=== PATIENT | female | born 1965 | race Caucasian/White ===

== ENCOUNTER → 2020-05-29 11:58 | Outpatient (CLI) | payer OTHER, SELFPAY ==
--- NOTE | 2020-05-29 12:10 | XR_ITS ---
PROCEDURE: XR RIBS LT MIN 3V W CXR1V CLINICAL INDICATION: CLOSED FRACTURE OF MULTIPLE RIBS OF LT SIDE Follow-up rib fractures COMPARISON: No exams were available for comparison FINDINGS: There are no previous studies available at this institution. There is a small left pleural effusion with consolidation/volume loss of the left lower lobe. There is a minimally displaced fracture involving the lateral aspect of the left 10th rib and the posterior aspect of the left 11th rib. Nondisplaced fractures involve the left 8th and 9th ribs posterior laterally. No evidence of pneumothorax. IMPRESSION: Left 8th through 11th rib fractures with small left pleural effusion and left basilar consolidation/volume loss. Dictated by: Isai Mathew MD 05/29/2020 13:40 Isai Mathew MD in [place] 05/29/2020 13:40
== END ==
PROVIDERS: PCP Nurse Practitioner Family; Visit Provider Nurse Practitioner Family
DX: S22.42XD Multiple fractures of ribs, left side, subsequent encounter for fracture with routine healing (principal); J98.11 Atelectasis
CPT/HCPCS: 71101

== ENCOUNTER 2020-08-27 13:56 | Emergency (ER) | payer OTHER, SELFPAY ==
[2020-08-27 15:15] VITALS: BP 123/74; PULSE 87; RESP 14; TEMP 36.8; O2SAT 98; BMI 26.2
--- NOTE | 2020-08-27 15:34 | HMH.EDUTC ---
[facility] [place] Clinical Impression: Exposure to COVID-19 virus Disposition: Home, Self-Care Condition on Discharge: Good Instructions: DI for COVID-19 (Suspected or Confirmed ), Preventing the Spread of Coronavirus Discharge Instructions Additional Instructions: self isolate until test results are known neg Referrals: Mars Gillette MD [Primary Care Provider] - Time of Disposition: 15:38 Medical Decision Making - Sung Inquiry Pt receiving controlled substance: No [facility] [place] - General Chief complaint: Urgent Treatment Center Stated complaint: covid exposure Time Seen by Provider: 08/27/20 15:34 Mode of Arrival: Ambulatory Source of Information: Patient Limitations: No Limitations - History of Present Illness Provider Complaint: 55 yr old male presents for covid test. Pt states she has no symptoms but has had a exposer last sat. - Related Data Home Medications Medication Instructions Recorded Confirmed estradiol 0.5 mg tablet 0.5 mg PO DAILY 08/07/19 08/07/19 Previous Rx's Medication Instructions Recorded ybqybnzvaqzkplv-vugjfvdkuinktfe-BT 10 ml PO Q4-6H PRN #120 ml 08/07/19 2 mg-30 mg-10 mg/5 mL oral syrup Allergies Allergy/AdvReac Type Severity Reaction Status Date / Time No Known Allergies Allergy Unverified 08/12/17 14:19 [facility] History - Hepatitis A Screen Attestation statement:: This patient has been screened for Hepatitis A risk factors. I have reviewed the patient's past medical history: Yes Other Surgeries: Yes: Hysterectomy-Partial - Social History Smoking Status: Current every day smoker Alcohol Intake: current Alcohol Intake Frequency:: 0-2 drinks per day Occupational Status: employed ROS Obtained: Yes Systems reviewed as appropriate & no additional complaints - Constitutional Constitutional: Reports system reviewed and no additional complaints, except as docu, Denies fever(s) - Eyes Eyes: Reports system reviewed and no additional complaints, except as docu, Denies change in vision - ENT Ears, Nose, Mouth, and Throat: Reports system reviewed and no additional complaints, except as docu, Denies sore throat - Cardiovascular Cardiovascular: Reports system reviewed and no additional complaints, except as docu, Denies chest pain - Respiratory Respiratory: Yes system reviewed and no additional complaints, except as docu, No change in phlegm color - Gastrointestinal Gastrointestingal: Reports: system reviewed and no additional complaints, except as docu. Denies: nausea, vomiting - Genitourinary Female Genitourinary: Reports system reviewed and no additional complaints, except as docu - Musculoskeletal Musculoskeletal: Reports system reviewed and no additional complaints, except as docu, Denies joint pain - Integumentary/Breasts Skin/Breast: Reports system reviewed and no additional complaints, except as docu, Denies rash - Neurologic Neurologic: Reports system reviewed and no additional complaints, except as docu, Denies dizziness - Endocrine Endocrine: Reports system reviewed and no additional complaints, except as docu, Denies fatigue - Hematologic/Lymphatic Henatologic/Lymphatic: Reports system reviewed and no additional complaints, except as docu, Denies lymphadenopathy - Allergic/Immunologic Allergic/Immunologic: Reports system reviewed and no additional complaints, except as docu, Denies itchy eyes Physical Exam - General General appearance: alert, in no apparent distress - Head Head exam: atraumatic, normocephalic, normal inspection - Eye Eye exam: Present: normal appearance, PERRL - ENT ENT exam: Present: normal exam, normal oropharynx, mucous membranes moist, TM's normal bilaterally, normal external ear exam - Neck Neck exam: Present: normal inspection, full ROM, trachea midline. Absent: meningismus, lymphadenopathy - Chest Chest inspection: Present: normal inspection, symmetric chest wall rise. Absent: tenderness - Resp
[2020-08-27 15:41] VITALS: BP 123/74; PULSE 87; RESP 14; TEMP 36.8; O2SAT 98
== END 2020-08-27 15:45 | disposition home or self-care (01) ==
PROVIDERS: Emergency Provider Nurse Practitioner Family; PCP Family Medicine
DX: Z20.822 Contact with and (suspected) exposure to COVID-19 (principal); F17.210 Nicotine dependence, cigarettes, uncomplicated
CPT/HCPCS: 99202; G0463; U0003

== ENCOUNTER 2021-03-17 16:19 | Emergency (ER) | payer OTHER, SELFPAY ==
[2021-03-17 16:20] VITALS: BP 153/90; PULSE 84; RESP 21; TEMP 36.8; O2SAT 98; BMI 26.2
--- NOTE | 2021-03-17 16:39 | HMH.EDUTC ---
[facility] [place] Clinical Impression: COVID-19 virus test result unknown Disposition: Home, Self-Care Condition on Discharge: Good Instructions: COVID-19 Viral Test, COVID-19: Protecting Yourself When You're at High Risk Additional Instructions: covid swab was sent to lab, call later today for results. self isolate until test results are known to be negative Referrals: Mars Gillette MD [Primary Care Provider] - Time of Disposition: 16:45 Medical Decision Making - Sung Inquiry Pt receiving controlled substance: No Orders (Tests/Meds): ORDERS Category Date Time Status Covid-19 Nasal PCR ([facility]) Routine Lab 03/17/21 16:29 [place] [facility] [place] - General Chief complaint: Urgent Treatment Center Stated complaint: covid test Time Seen by Provider: 03/17/21 16:39 Mode of Arrival: Ambulatory Source of Information: Patient Limitations: No Limitations - History of Present Illness Provider Complaint: 56 yr old female presents for covid test, pt has no symptoms. pt states she has been traveling and wanted tested before being around anyone - Related Data Home Medications Medication Instructions Recorded Confirmed estradiol 0.5 mg tablet 0.5 mg PO DAILY 08/07/19 08/07/19 Previous Rx's Medication Instructions Recorded wxfahmqxgyiiezi-yrjggbzrqrkeefn-KO 10 ml PO Q4-6H PRN #120 ml 08/07/19 2 mg-30 mg-10 mg/5 mL oral syrup Allergies Allergy/AdvReac Type Severity Reaction Status Date / Time amoxicillin Allergy Verified 08/27/20 15:36 [facility] History - Hepatitis A Screen Attestation statement:: This patient has been screened for Hepatitis A risk factors. I have reviewed the patient's past medical history: Yes Other Surgeries: Yes: Hysterectomy-Partial - Social History Smoking Status: Current every day smoker Alcohol Intake: never Alcohol Intake Frequency:: 0-2 drinks per day Occupational Status: other ROS Obtained: Yes Systems reviewed as appropriate & no additional complaints - Constitutional Constitutional: Reports system reviewed and no additional complaints, except as docu, Denies fatigue - Eyes Eyes: Reports system reviewed and no additional complaints, except as docu, Denies blurry vision - ENT Ears, Nose, Mouth, and Throat: Reports system reviewed and no additional complaints, except as docu, Denies sinus pain - Cardiovascular Cardiovascular: Reports system reviewed and no additional complaints, except as docu, Denies chest pain - Respiratory Respiratory: Reports system reviewed and no additional complaints, except as docu, Denies shortness of breath - Gastrointestinal Gastrointestingal: Reports: system reviewed and no additional complaints, except as docu. Denies: belching - Genitourinary Female Genitourinary: Reports system reviewed and no additional complaints, except as docu, Denies pelvic pain - Musculoskeletal Musculoskeletal: Reports system reviewed and no additional complaints, except as docu, Denies joint pain - Integumentary/Breasts Skin/Breast: Reports system reviewed and no additional complaints, except as docu, Denies rash - Neurologic Neurologic: Reports system reviewed and no additional complaints, except as docu, Denies dizziness - Endocrine Endocrine: Reports system reviewed and no additional complaints, except as docu, Denies fatigue - Hematologic/Lymphatic Henatologic/Lymphatic: Reports system reviewed and no additional complaints, except as docu, Denies lymphadenopathy - Allergic/Immunologic Allergic/Immunologic: Reports system reviewed and no additional complaints, except as docu, Denies itchy eyes Physical Exam - General General appearance: alert, in no apparent distress - Head Head exam: atraumatic, normocephalic, normal inspection - Eye Eye exam: Present: normal appearance, PERRL - ENT ENT exam: Present: normal exam, normal oropharynx, mucous membranes moist, TM's normal bilaterally, normal external ear exam - Neck Neck ex
[2021-03-17 16:53] VITALS: BP 153/90; PULSE 84; RESP 21; TEMP 36.8; O2SAT 99
== END 2021-03-17 16:54 | disposition home or self-care (01) ==
PROVIDERS: Emergency Provider Nurse Practitioner Family; PCP Family Medicine
DX: Z11.52 Encounter for screening for COVID-19 (principal); F17.210 Nicotine dependence, cigarettes, uncomplicated
CPT/HCPCS: 99202; G0463; U0003

== ENCOUNTER 2021-04-14 09:30 | Emergency (ER) | payer OTHER, SELFPAY ==
[2021-04-14 09:30] VITALS: BP 179/97; PULSE 75; RESP 18; TEMP 36.6; O2SAT 98; BMI 26.7
--- NOTE | 2021-04-14 10:06 | HMH.EDUTC ---
[facility] [place] Disposition Clinical Impression: Encounter for laboratory testing for COVID-19 virus Disposition: Home, Self-Care Condition on Discharge: Good Instructions: Methylprednisolone, DI for COVID-19 (Suspected or Confirmed ), Coronavirus Disease 2019, Preventing the Spread of Coronavirus Discharge Instructions Additional Instructions: *Monitor Temp, Over the counter Motrin or Tylenol as directed/as needed Tylenol every 4 hours and Motrin every 6 hours (as long as your family doctor has told you that you can take it) for fever or pain. and straight to ER if unable to lower temp less than 101.0 after medication given *Warm salt water gargles may help to soothe the throat *Throat Lozenges *Warm fluids like tea with honey may help to soothe the throat *Sleep elevated *Humidifier/Vaporizer *Flonase 2 sprays in each nostril daily but be aware that it may take 2-3 days before you notice improvement Make sure to follow up with your Family Doctor if your blood pressure remains elevated Follow up IMMEDIATELY for new or worsening symptoms or no Noticeable improvement over the next 48-72 hours. 911 for difficulty breathing or swallowing You were tested for today for COVID19 your test result should be back in the next 24-48 hours, you may call to the [facility] to see if your test results are back in the next 48 hours [phone] [facility] hours are 9am-9pm You was given a handout with instructions for Self Quarantine and Self isolation for while you wait on test results and what to do if they are positive If you are positive the Health Dept will be contacting you also Make sure to take your Vitamins Vit. C Vit D and Zinc if you can take them Prescriptions: methylPREDNISolone [Medrol 4mg tab] 4 mg PO DIRECTED #21 tab Transmission Status: Pending to [facility] # Benzonatate [Tessalon Perle 100mg Cap*] 100 mg PO TID PRN #30 cap PRN Reason: Cough Transmission Status: Pending to [facility] # Referrals: Karen Lara MD [Primary Care Provider] - As needed Time of Disposition: 10:10 Medical Decision Making - Sung Inquiry Pt receiving controlled substance: No Sung was queried for this patient: No Vital Signs: 04/14/21 09:30 Temperature 97.9 F Temperature Source Oral Pulse Rate [Right Brachial] 75 Respiratory Rate 18 Blood Pressure [Right Arm] 179/97 H Blood Pressure Mean [Right Arm] 124 Blood Pressure Source [Right Arm] Automatic Cuff Blood Pressure Position [Right Arm] Sitting 02 Sat by Pulse Oximetry 98 Oxygen Delivery Method Room Air [facility] [place] HPI - General Stated complaint: covid symptoms/covid test Time Seen by Provider: 04/14/21 10:06 Mode of Arrival: Ambulatory Source of Information: Patient Limitations: No Limitations Description of Symptoms (Recalled from Triage Doc. by RN): PATIENT C/O SINUS DRAINAGE, PRODUCTIVE COUGH WITH YELLOW-BROWN SPUTUM SINCE LAST FRIDAY. SHE HAS BEEN ON AZITHROMYCIN SINCE FRIDAY. HEENT Symptoms (Recalled from RN notes): Yes Resp Symptoms (Recalled from RN notes): Yes Skin Symptoms (Recalled from RN notes): No MS Symptoms (Recalled from RN notes): No Functional Status (Recalled from RN notes): WNL - History of Present Illness Provider Complaint: Patient state that she has been on Azithromycin since Fri State that she has still been having cough with productive mucous at times State that she has been taking mucinex to help get it up States that she is still having some sinus pressure State that today she was still feeling bad and having body aches so she came in to get tested for COVID - Related Data Home Medications Medication Instructions Recorded Confirmed estradiol 0.5 mg tablet 0.5 mg PO DAILY 08/07/19 08/07/19 Previous Rx's Medication Instructions Recorded omvmmzmxqiadooi-cfxlmwvwmzocptx-LB 10 ml PO Q4-6H PRN #120 ml 08/07/19 2 mg-30 mg-10 mg/5 mL oral syrup Benzonatate [Tessalon Perle 100mg 100 mg PO TID PRN #30 cap 04/14/21 Cap*] methylPR
[2021-04-14 10:17] VITALS: BP 179/97; PULSE 75; RESP 18; TEMP 36.6; O2SAT 98
== END 2021-04-14 10:21 | disposition home or self-care (01) ==
PROVIDERS: Emergency Provider Nurse Practitioner; PCP Family Medicine
DX: Z20.822 Contact with and (suspected) exposure to COVID-19 (principal); R05 Cough
CPT/HCPCS: 99202; G0463; U0003

== ENCOUNTER → 2021-09-17 09:26 | Outpatient (CLI) | payer OTHER, SELFPAY | PROVIDERS: PCP Family Medicine; Visit Provider Nurse Practitioner | DX: U07.1 COVID-19 (principal) | CPT/HCPCS: C9803; U0003; U0005 ==

== ENCOUNTER 2022-07-19 10:44 | Emergency (ER) | payer OTHER, SELFPAY ==
[2022-07-19 13:25] VITALS: BP 150/73; PULSE 95; RESP 17; TEMP 36.7; O2SAT 99; BMI 26.7
--- NOTE | 2022-07-19 13:30 | EXP.UTC ---
Discharge Plan Disposition Patient Disposition: Home, Self-Care Condition: Good Prescriptions Prescriptions: New benzonatate [benzonatate] 100 mg capsule 100 mg PO TIDP PRN (Reason: Cough) Qty: 30 0RF oseltamivir [Tamiflu] 75 mg capsule 75 mg PO BID Qty: 10 0RF ondansetron 4 mg Tablet,Disintegrating 4 mg PO Q8H PRN (Reason: Nausea) Qty: 12 0RF No Action estradiol 0.5 mg tablet 0.5 mg PO DAILY rotinlwkksmibvs-qqhjmpzva-GR [Bromfed DM] 2-30-10 mg/5 mL syrup 10 ml PO Q4-6H PRN (Reason: cold symptoms) Qty: 120 0RF methylprednisolone 4 MG tablet 4 mg PO DIRECTED Qty: 21 0RF Rx Instructions: Take as directed on package instructions benzonatate 100 MG capsule 100 mg PO TID PRN (Reason: Cough) Qty: 30 0RF Referrals Follow up/Referrals: Gill Alcantara APRN [Primary Care Provider] - See instructions Activity Restrictions/Add. Instructions Additional Instructions/Restrictions: Drink plenty of fluids. Take tylenol or ibuprofen for pain or fever. Take the medications as directed. Follow up with your regular doctor. GO TO THE ER FOR ANY WORSENING SYMPTOMS Clinical Impressions Clinical Impression: Influenza A Instructions Patient Instructions: DI for Influenza -- Adult, Oseltamivir Discharge ED Provider: Ketan Figueroa [facility] General Stated complaint: exposed to flu, [place], chills Time Seen by Provider: 07/19/22 13:30 History of Present Illness Provider Complaint: She states that for the past 2 days she has had a cough, sinus congestion, fever, and scratchy sore throat. Related Data Home Medications Medication Instructions Recorded Confirmed estradiol 0.5 mg tablet 0.5 mg PO DAILY 08/07/19 08/07/19 Previous Rx's Medication Instructions Recorded ibjlqmqmzrsbzgj-ddezkhynvoreazz-YZ 10 ml PO Q4-6H PRN cold symptoms 08/07/19 2 mg-30 mg-10 mg/5 mL oral syrup #120 mL (Bromfed DM) benzonatate 100 mg capsule 100 mg PO TID PRN Cough #30 caps 04/14/21 methylprednisolone 4 mg tablet 4 mg PO DIRECTED #21 tabs 04/14/21 benzonatate 100 mg capsule 100 mg PO TIDP PRN Cough #30 caps 07/19/22 ondansetron 4 mg disintegrating 4 mg PO Q8H PRN Nausea #12 tabs 07/19/22 tablet oseltamivir 75 mg capsule (Tamiflu) 75 mg PO BID #10 caps 07/19/22 Allergies Allergy/AdvReac Type Severity Reaction Status Date / Time amoxicillin Allergy Verified 08/27/20 15:36 Penicillins Allergy Verified 04/14/21 10:05 PFSH PFSH Medical History Hypertension Surgical History History of section History of hysterectomy Social History Smoking Status: Current every day smoker alcohol intake: never current occupational status: other Travel in the last 8 weeks: None ROS Obtained: Yes All systems reviewed & no additional complaints except as documented Constitutional Constitutional: Reports chills and Reports fever(s) Eyes Eyes: Denies eye discharge ENT Ears, Nose, Mouth, and Throat: Reports as per HPI Cardiovascular Cardiovascular: Denies chest pain Respiratory Respiratory: Denies chest congestion and Reports cough Gastrointestinal Gastrointestingal: Reports nausea; Denies abdominal pain, constipation, cramping, diarrhea or vomiting Musculoskeletal Musculoskeletal: Denies arthralgias Integumentary/Breasts Skin/Breast: Denies rash Neurologic Neurologic: Denies paresthesias Physical Exam General General appearance: alert and in no apparent distress Head Head exam: atraumatic, normocephalic and normal inspection Eye Eye exam: Present normal appearance, PERRL and EOMI ENT ENT exam: Present normal exam, normal oropharynx, mucous membranes moist, TM's normal bilaterally and normal external ear exam Neck Neck exam: Present normal inspection, full ROM and trachea midline; Absent meningismus or lym
[2022-07-19 13:42] LABS: UTC Influenza A Antigen Positive (Negative); UTC Influenza B Antigen Negative (Negative)
[2022-07-19 13:43] VITALS: BP 150/73; PULSE 95; RESP 17; TEMP 36.7; O2SAT 99
== END 2022-07-19 14:07 | disposition home or self-care (01) ==
PROVIDERS: Emergency Provider Nurse Practitioner Family; PCP Nurse Practitioner Family
DX: J10.1 Influenza due to other identified influenza virus with other respiratory manifestations (principal)
CPT/HCPCS: 87804; 99212; G0463

== ENCOUNTER → 2023-05-06 23:42 | Outpatient (CLI) | payer OTHER, SELFPAY ==
[2023-05-06 18:02] LABS: Basophils % 0.4 % (0.1-2.0); Eosinophils # 0.1 K/mm3 (0.0-0.4); Eosinophils % 1.6 % (0.1-12.0); Hematocrit 42.9 % (37.0-47.0); Hemoglobin 13.7 g/dL (12.2-16.2); Lymphocytes # 2.1 K/mm3 (0.7-4.5); Lymphocytes % 50.1 % (10-50); Mean Corpuscular HGB Conc 31.8 g/dL (31.8-35.4); Mean Corpuscular Hemoglobin 30.9 pg (27.0-31.2); Mean Corpuscular Volume 97.2 fl (81-99); Mean Platelet Volume 8.8 fl (7.4-10.4); Monocytes # 0.4 K/mm3 (0.1-1.0); Monocytes % 8.4 % (1.7-9.3); Neutrophils # 1.7 K/mm3 (1.8-7.8); Neutrophils % 39.5 % (37.0-80.0); Platelet Count 265 K/mm3 (142-424); Red Blood Count 4.42 M/mm3 (4.20-5.40); Red Cell Distribution Width 13.1 % (11.5-17.5); White Blood Count 4.2 K/mm3 (4.8-10.8)
[2023-05-06 18:05] LABS: MANUAL DIFFERENTIAL MANUAL DIFFERENTIAL (MANUAL DIFF)
[2023-05-06 18:08] LABS: Alanine Aminotransferase 20 U/L (12-78); Albumin Level 4.3 g/dl (3.5-5.0); Albumin/Globulin Ratio 1.5 (1.1-1.8); Alkaline Phosphatase 61 U/L (38-126); Anion Gap 15.1 mEq/L (5-15); Aspartate Amino Transferase 31 U/L (14-36); Bilirubin,Total 0.4 mg/dl (0.2-1.3); Blood Urea Nitrogen 23 mg/dl (7-17); Calcium 9.4 mg/dl (8.4-10.2); Carbon Dioxide 28 mmol/L (22.0-30.0); Chloride 102 mmol/L (98-107); Cholesterol 217 mg/dl (140-200); Estimated Glomerular Filt Rate 64 ml/min (>60); GFR (African American) 78 ML/MIN (>60); Globulin 2.9 g/dL (1.3-3.2); Glucose 98 mg/dl (74-100); Potassium 5.1 mmoL/L (3.5-5.1); Sodium 140 mmol/L (136-145); Total Protein,Serum 7.2 g/dl (6.3-8.2); Triglycerides 110 mg/dl (30-150); VLDL Cholesterol 22 mg/dL (0-40)
[2023-05-06 18:15] LABS: Chol/HDL Ratio 2.3 (1-3.5); HDL Cholesterol 96 mg/dl (40-60)
[2023-05-06 18:19] LABS: Direct LDL Cholesterol 94.27 mg/dL (100-129)
[2023-05-06 18:25] LABS: 25-OH Vitamin D, Total 40.1 ng/mL (30-100)
[2023-05-06 18:38] LABS: Thyroid Stimulating Hormone 0.16 uIU/mL (0.465-4.68)
[2023-05-06 18:57] LABS: Vitamin B12 962 pg/mL (239-931)
[2023-05-06 20:40] LABS: Eosinophils % 3 % (0-3); Lymphocytes % 57 % (10-50); Monocytes % 4 % (2-9); Neutrophils % 36 % (42-76); Total Cells Counted 100
[2023-05-06 20:41] LABS: Platelet Estimate Normal; Stomatocytes 1+
[2023-05-08 17:54] LABS: Peripheral Smear Review Scanned Result
== END ==
PROVIDERS: PCP Physician Assistant; Visit Provider Physician Assistant
DX: Z00.00 Encounter for general adult medical examination without abnormal findings (principal); Z68.26 Body mass index [BMI] 26.0-26.9, adult
CPT/HCPCS: 80053; 80061; 82306; 82607; 84443; 85007; 85025

== ENCOUNTER → 2023-05-12 14:55 | Outpatient (CLI) | payer OTHER, SELFPAY ==
[2023-05-14 15:02] LABS: Peripheral Smear Review Scanned Result
== END ==
PROVIDERS: PCP Physician Assistant; Visit Provider Physician Assistant
DX: D72.819 Decreased white blood cell count, unspecified (principal)
CPT/HCPCS: 36415

== ENCOUNTER → 2023-06-03 06:56 | Outpatient (CLI) | payer OTHER, SELFPAY ==
[2023-06-03 18:20] LABS: Basophils % 0.4 % (0.1-2.0); Eosinophils # 0.1 K/mm3 (0.0-0.4); Hemoglobin 13.1 g/dL (12.2-16.2); Lymphocytes # 2.3 K/mm3 (0.7-4.5); Lymphocytes % 48.8 % (10-50); Mean Corpuscular HGB Conc 33.7 g/dL (31.8-35.4); Mean Corpuscular Hemoglobin 32.7 pg (27.0-31.2); Mean Corpuscular Volume 97.1 fl (81-99); Mean Platelet Volume 8.8 fl (7.4-10.4); Monocytes # 0.3 K/mm3 (0.1-1.0); Monocytes % 6.8 % (1.7-9.3); Neutrophils % 43.1 % (37.0-80.0); Platelet Count 245 K/mm3 (142-424); Red Blood Count 4.02 M/mm3 (4.20-5.40); Red Cell Distribution Width 13.4 % (11.5-17.5); White Blood Count 4.7 K/mm3 (4.8-10.8)
[2023-06-09 13:15] LABS: Lyme B. burgdorferi PCR Blood Negative (Negative)
== END ==
PROVIDERS: PCP Physician Assistant; Visit Provider Physician Assistant
DX: R89.9 Unspecified abnormal finding in specimens from other organs, systems and tissues (principal); W57.XXXA Bitten or stung by nonvenomous insect and other nonvenomous arthropods, initial encounter
CPT/HCPCS: 85025; 87476

== ENCOUNTER → 2023-07-29 13:15 | Outpatient (CLI) | payer OTHER, SELFPAY ==
--- NOTE | 2023-07-29 13:19 | XR_ITS ---
FINAL REPORT CLINICAL HISTORY: foot pain FINDINGS: 3 weightbearing views of the left foot were obtained. There is no acute fracture or dislocation. There is a small plantar calcaneal spur. The joint spaces are intact. The soft tissues are unremarkable. IMPRESSION: No acute process. Reviewed, Interpreted and Dictated by Tyson Puentes III, MD Transcribed by Anthony Tejeda Authenticated and [facility]
--- NOTE | 2023-07-29 13:19 | XR_ITS ---
FINAL REPORT CLINICAL HISTORY: foot pain FINDINGS: 3 weightbearing views of the right foot were obtained. There is no acute fracture or dislocation. There is a small plantar calcaneal spur. The joint spaces are intact. The soft tissues are unremarkable. IMPRESSION: No acute process. Reviewed, Interpreted and Dictated by Tyson Puentes III, MD Transcribed by Anthony Tejeda Authenticated and [facility]
== END ==
PROVIDERS: PCP Physician Assistant; Visit Provider Nurse Practitioner Family
DX: M79.671 Pain in right foot (principal); M79.672 Pain in left foot
CPT/HCPCS: 73630

== ENCOUNTER 2023-11-18 14:45 | Outpatient (POV) | payer OTHER, SELFPAY | END 2023-11-18 23:59 | disposition home or self-care (01) | LOC: SC 14:46 | PROVIDERS: PCP Physician Assistant; Visit Provider Dermatology | DX: Z00.00 Encounter for general adult medical examination without abnormal findings (principal) ==

== ENCOUNTER 2024-05-31 12:00 | Outpatient (CLI) | payer OTHER, SELFPAY ==
[2024-05-31 19:22] LABS: Thyroid Stimulating Hormone 1.35 uIU/mL (0.465-4.68)
== END 2024-05-31 23:59 | disposition home or self-care (01) ==
LOC: LAB.DROPOF 06-01 10:17
PROVIDERS: PCP Internal Medicine; Visit Provider Internal Medicine
DX: R79.89 Other specified abnormal findings of blood chemistry (principal)
CPT/HCPCS: 84443

== ENCOUNTER 2024-06-16 09:07 | Outpatient (CLI) | payer OTHER, SELFPAY ==
--- NOTE | 2024-06-16 09:08 | XR_ITS ---
FINAL REPORT CLINICAL HISTORY: screening FINDINGS: Using L1-4, the bone mineral density of the spine is 1.056 g/cm2, corresponding to T-score of 0.1. Using the left hip, the bone mineral density of the femoral neck is 0.801 g/cm2, corresponding to a T-score of -0.4. Using the right hip: The bone mineral density of the femoral neck is 0.829 g/cm2, corresponding to a T-score of -0.2. IMPRESSION: Normal bone mineral density of the lumbar spine and hips. NOTE: T-score: Standard deviation compared with peak bone mass of young adult mean. *Following the recommendations of the International Society of Bone densitometry, classification of hip BMD is based on the lower of two T-scores; total hip or femoral neck. Reviewed, Interpreted and Dictated by Jose Hung MD Transcribed by Mary Kennedy Authenticated and [facility]
== END 2024-06-16 23:59 | disposition home or self-care (01) ==
LOC: RAD 09:08
PROVIDERS: PCP Internal Medicine; Visit Provider Internal Medicine
DX: Z91.89 Other specified personal risk factors, not elsewhere classified (principal); Z82.62 Family history of osteoporosis
CPT/HCPCS: 77080

== ENCOUNTER 2024-09-26 09:00 | Emergency (ER) | payer OTHER, SELFPAY ==
[2024-09-26 09:25] VITALS: BP 161/97; PULSE 75; RESP 18; TEMP 36.8; O2SAT 96; BMI 26.7
--- NOTE | 2024-09-26 09:33 | EXP.UTC ---
Discharge Plan Disposition Patient Disposition: Home, Self-Care Condition: Good Prescriptions Prescriptions: No Action tirzepatide (weight loss) 10 mg/0.5 mL pen injector 10 mg SQ WEEKLY hydrocodone-homatropine 5-1.5 mg/5 mL syrup 5 ml PO Q4-6H PRN (Reason: cough) Qty: 473 0RF albuterol sulfate 90 mcg/actuation aerosol powdr breath activated 2 inh inhalation Q6H PRN (Reason: shortness of breath or wheezing) Qty: 1 3RF Alvesco 80 mcg/actuation HFA aerosol inhaler 1 puff inhalation BID Qty: 6.1 3RF estradiol 1 mg tablet 1 mg PO DAILY Patient Comments: TAKE 1 TABLET BY MOUTH EVERY DAY losartan 50 mg tablet See Rx Instructions .ROUTE .COMPLEX Qty: 90 0RF Dose Instruction: TAKE 1 TABLET BY MOUTH DAILY Rx Instructions: TAKE 1 TABLET BY MOUTH DAILY Referrals Follow up/Referrals: Lisandro Gale DO [Primary Care Provider] - See instructions Activity Restrictions/Add. Instructions Additional Instructions/Restrictions: Make sure to call OBGYN in the morning as you was instructed and follow up as soon as possible Straight to ER if any life threatening symptoms Return if needed Take it easy no heavy lifting or exercise until seen by OBGYN Clinical Impressions Clinical Impression: Vaginal bleeding problems Print Language Print Language: Bulgarian Discharge ED Provider: Joyce Jason [facility] [place] General Stated complaint: uti Time Seen by Provider: 09/26/24 09:33 History of Present Illness Provider Complaint: Patient states that she had a hysterectomy back several years ago and had female exam done last week and then she started spotting and yesterday had some vaginal bleeding States that she called the OBGYN and they wanted her to get tested to see if she may have a UTI and if not follow up in the office with them for further evaluation States that she has been having some urinary frequency on and off states that she hasnt had any burning with urination or anything but has had a little headache on and off Related Data Home Medications ?Medication ?Instructions ?Recorded ?Confirmed estradiol 1 mg tablet 1 mg PO DAILY 05/06/23 06/21/24 tirzepatide (weight loss) 10 10 mg SQ WEEKLY 05/17/24 06/21/24 mg/0.5 mL subcutaneous pen injector Previous Rx's ?Medication ?Instructions ?Recorded albuterol sulfate 90 mcg/actuation 2 inh inhalation Q6H PRN shortness 06/21/24 breath activated powder inhaler of breath or wheezing #1 ea ciclesonide 80 mcg/actuation 1 puff inhalation BID #6.1 grams 06/21/24 aerosol inhaler (Alvesco) hydrocodone-homatropine 5 mg-1.5 5 ml PO Q4-6H PRN cough #473 mL 06/21/24 mg/5 mL oral syrup losartan 50 mg tablet See Rx Instructions .Route 08/13/24 .COMPLEX #90 tabs Allergies Allergy/AdvReac Type Severity Reaction Status Date / Time amoxicillin Allergy Verified 06/21/24 14:38 Penicillins Allergy Verified 06/21/24 14:38 [facility]: The information contained in this section may have been updated after the patient was seen, as this information can be updated by other users. Medical History Hypertension Surgical History History of hysterectomy History of section Family History Other No significant family history Social History Smoking Status: Current every day smoker alcohol intake: never current occupational status: other Travel in the last 8 weeks: None Have you lived/traveled outside US in past 30 days?: No Contact w/someone who lives/traveled outside US past 30 days?: No Exposure to someone with infectious disease in past 14 days?: No Do you have a fever (greater than 100.4 F or 38 C)?: No Have you tested positive for COVID-19: No Exposed to someone with COVID-19 in past 14 days?: No Do you have a sore throat?: No Do you have a cough?: No Do you have any weakness?: No Do you have any diarrhea?: No Are you experiencing any unusual bleeding?: No Do you have any muscle aches/pain?: No Do you have any abdominal pain?: No Are you experiencing loss of taste or smell?: Yes ROS Obtained: Yes All systems reviewed & no additional complaints except as documented and Yes Systems reviewed as appropriate & no additional complaints except as documented Constitutional Constitutional: Reports system reviewed and no additional complaints, except as documented, Reports as per HPI, Denies body ache, Denies chills, Denies fever(s) and Reports headache(s) (on and off x 2 weeks) ENT Ears, Nose, Mouth, and Throat: Reports system reviewed and no additional complaints, except as documented, Reports as per HPI and Reports headache(s) (on and off x 2 weeks) Cardiovascular Cardiovascular: Reports system reviewed and no additional complaints, except as documented and Reports as per HPI Respiratory Respiratory: Reports system reviewed and no additional complaints, except as documented and Reports as per HPI Gastrointestinal Gastrointestingal: Reports system reviewed and no additional complaints, except as documented and as per HPI Genitourinary Female Genitourinary: Reports system reviewed and no additional complaints, except as documented, Reports as per HPI, Reports abnormal vaginal bleeding, Reports urinary frequency and Reports urinary urgency Musculoskeletal Musculoskeletal: Reports system reviewed and no additional complaints, except as documented and Reports as per HPI Neurologic Neurologic: Reports headache(s) (on and off x 2 weeks) Physical Exam General General appearance: alert and in no apparent distress ENT ENT exam: Present normal exam, normal oropharynx, mucous membranes moist and TM's normal bilaterally Respiratory Respiratory exam: Present normal lung sounds bilaterally; Absent respiratory distress or wheezes Cardiovascular Cardiovascular exam: Present regular rate, normal rhythm and normal heart sounds Abdominal Exam Abdominal exam: Present soft and normal bowel sounds; Absent distention or tenderness Neurological Exam Neurological exam: Present alert, oriented X3 and normal gait Medical Decision Making Medical Records Screening: Per USPSTF and CDC recommendations, given the prevalence of disease in our region, it is our hospital?s policy to screen for HIV and viral Hepatitis for all patients aged 18 and over and those with ongoing risk factors. Sung Inquiry Pt receiving controlled substance: No Sung was queried for this patient: No Lab Data Lab results reviewed: Yes I reviewed the patient's lab results. Medical Decision Narrative: Patient informed of results of UA dip and will send urine for culture patient states that she is not having any vaginal bleeding today and will call OBGYN first thing in the morning for further evaluation and examination Patient given strict return instructions to the ED
[2024-09-26 09:35] LABS: Apearance,Urine Clear (Clear); Bilirubin,Urine Negative (Negative); Blood, Urine Negative (Negative); Color,Urine Yellow (Yellow); Glucose,Urine (UA) Negative (Negative); Ketones,Urine Negative (Negative); Protein,Urine Negative (Negative); UTC Leukocyte Esterase,Urine Negative (Negative); UTC Nitrate,Urine Negative (Negative); Urobilinogen,Urine 0.2 EU/dl (0.2)
[2024-09-26 09:53] VITALS: BP 161/97; PULSE 75; RESP 18; TEMP 36.8; O2SAT 96
== END 2024-09-26 09:55 | disposition home or self-care (01) ==
PROVIDERS: Emergency Provider Nurse Practitioner; PCP Internal Medicine
DX: N93.9 Abnormal uterine and vaginal bleeding, unspecified (principal)
CPT/HCPCS: 81003; 87086; 99213; G0381

== ENCOUNTER 2025-02-03 11:58 | Outpatient (CLI) | payer OTHER, SELFPAY ==
--- OUTSIDE RECORDS SUMMARY | 2024-12-14 05:15 | XMS_ITS ---
Author Organization [facility] Address [address] [place] [address] Care Team Providers Care Carroter Name Role Phone Eliane Soliz Unavailable [phone] Fartun Chaudhary Unavailable [phone] Allergies Allergen (clinical drug ingredient) Drug/Non Drug Allergy documented on EMR Reaction Allergy Type Onset Date Status PENICILLIN V POTASSI UM (PENICILLIN V POTASSIUM TAB rash Drug Allergy 12/23/2013 Active REASON FOR VISIT Pre Op Medications Medication SIG (Take, Route, Frequency, Duration) Notes Start Date End Date Status Testosterone Active Turmeric Active Losartan Potassium 1.25mg sr cap Active Acetaminophen Extra Strength 500 MG Tablet 2 tablet po every 6 hours; Duration: 14 days Take on schedule for 14 days to prevent post operative pain, then as needed. Active Meloxicam 15 MG Tablet 1 tablet po daily; Duration: 14 days Take daily for 14 days to prevent post-operative pain. Active Ondansetron HCl 4 MG Tablet 1 tablet po every 8 hours; Duration: 3 days As needed for post operative nausea Active oxyCODONE HCl 5 MG Tablet 1 tablet po every 6 hours; Duration: 3 days Take as needed for severe post operative pain. 12/14/2024 Active Polyethylene Glycol 3350 17 GM/SCOOP Powder 1 scoop po daily; Duration: 14 days Use daily for 14 days to prevent post operative constipation. May hold for loose stool. May double dose for severe constipation. Active Estradiol 1 MG Tablet 1 tablet Orally On ce a day; Duration: 90 days Active Apple Cider Vinegar Active Social History Tobacco Use: Social History Observation Description Date Details (start date - stop date) Former Smoker NA - NA Sex Assigned At : Social History Observation Description Sex Assigned At Female Social History Drugs/Alcohol: Social Info Question Answer Notes Drugs Have you used drugs other than those for medical reasons in the past 12 months? No Alcohol Screen Did you have a drink containing alcohol in the past year? No Points 0 Interpretation Negative Tobacco Use: Social Info Question Answer Notes Tobacco Use/Smoking Are you a former smoker Vital Signs Blood pressure systolic 126 mm Hg 12/15/19 25 Blood pressure diastolic 86 mm Hg 025 Height 61 in 12/14/2024 Weight 139.8 lbs 12/14/2024 BMI 26.41 kg/m2 12/14/2024 Encounters Encounter Location Date Provider Diagnosis [facility] [address] [facility] [address] [place] [address] 12/14/2024 Fartun Chaudhary Pelvic mass R19.00 ; Vaginal bleeding N93.9 and Pre-op evaluation Z01.818 Assessments Encounter Date Diagnosis (ICD Code) Assessment Notes Treatment Notes Treatment Clinical Notes Section Notes 12/14/2024 Pelvic mass (ICD-10 - R19.00) 12/14/2024 Vaginal bleeding (ICD-10 - N93.9) 12/14/2024 Pre-op evaluation (ICD-10 - Z01.818) Patient's diagnosis and treatment options were again reviewed, including lesser invasive options. The risks, benefits, and likely outcomes of each were reviewed. The patient confirms her desire to proceed with robotic bilateral oophorectomy and excision of vaginal wall mass. Recognized risks of this procedure are those of any laparoscopic surgical procedure including anesthesia, bleeding, infection, damage to bowel or bladder and neurologic damage. Specific risks of this procedure were also reviewed including ureteral damage, DVT and its sequelae, vaginal cuff hematoma or infection, wound dehiscence as well as the general management of these complications. She was informed of the possible need to convert the laparoscopic procedure to an open procedure after the induction of anesthesia. She was also advised that bleeding, bowel injury, bladder injury or ureteral injury may not be obvious at the time of surgery and that she would need to be vigilant to call my office ERIC with any increasing abdominopelvic pain or any fever in the two weeks following surgery. All the patient's questions were answered, and she was advised to call with any other questions that she may have prior to the operation. Postoperative restrictions and recommended activity level is discussed. Postoperative medications will be sent to her pharmacy on file. She is provided with written instructions regarding post operative medications, wound care and activity. Plan Of Treatment Medication Medication Name Sig Start Date Stop Date Notes Acetaminophen Extra Strength 500 MG Tablet 2 tablet po every 6 hours; Duration: 14 days Meloxicam 15 MG Tablet 1 tablet po daily ; Duration: 14 days Ondansetron HCl 4 MG Tablet 1 tablet po every 8 hours; Duration: 3 days oxyCODONE HCl 5 MG Tablet 1 tablet po ev theo 6 hours; Duration: 3 days 12/14/2024 Polyethylene Glycol 3350 17 GM/SCOOP Powder 1 scoop po daily; Duration: 14 days Treatment Notes Assessment Notes Pre-op evaluation Patient's diagnosis and treatment options were again reviewed, including lesser invasive options. The risks, benefits, and likely outcomes of each were reviewed. The patient confirms her desire to proceed with robotic bilateral oophorectomy and excision of vaginal wall mass. Recognized risks of this procedure are those of any laparoscopic surgical procedure including anesthesia, bleeding, infection, damage to bowel or bladder and neurologic damage. Specific risks of this procedure were also reviewed including ureteral damage, DVT and its sequelae, vaginal cuff hematoma or infection, wound dehiscence as well as the general management of these complications. She was informed of the possible need to convert the laparoscopic procedure to an open procedure after the induction of anesthesia. She was also advised that bleeding, bowel injury, bladder injury or ureteral injury may not be obvious at the time of surgery and that she would need to be vigilant to call my office ERIC with any increasing abdominopelvic pain or any fever in the two weeks following surgery. All the patient's questions were answered, and she was advised to call with any other questions that she may have prior to the operation. Postoperative restrictions and recommended activity level is discussed. Postoperative medications will be sent to her pharmacy on file. She is provided with written instructions regarding post operative medications, wound care and activity. Next Appt Details Provider Name:Eliane Soliz, 09/16/2025 11:15:00 AM, [address] [place] [address], [id number], History and Physical Notes * HPI (History of Present Illness) Category Sub-Category Detail Notes Category Not es RN NEONATAL Floridalma Conrad is a 59-year-old female who reports experiencing vaginal bleeding since September 15. Initially, she thought it was a minor scratch, but the bleeding persisted. She underwent treatment with silver nitrate, which temporarily stopped the bleeding for two to three days, but it resumed and lasted about a week the second time. The bleeding has worsened, and she now uses four to five panty liners a day, compared to a couple a day previously. She notes that the bleeding is more pronounced when she goes to the bathroom. Floridalma also mentions a family history of ovarian cancer, as her mother from the disease. She had a hysterectomy before her mother's diagnosis and has since undergone ovarian screening. Since her last visit, her bx has come back consistent with endometrial tissue. She has been scheduled for robotic bilateral oophorectomy with excision of vaginal apex mass. Examination Category Sub-Category Detail Notes Category Not es General Examination GENERAL: Well develop ed/well nourished, no acute distress, oriented to time, place, and person CARDIOPULMONARY: Respiratory effort e clark and unlabored PSYCHIATRIC: Mood pleasant Progress Notes * Floridalma CONRAD LDOB:1965 (59 yo F)Acc No.[id number]:12/14/2024 Progress Note Patient: Floridalma SMYTH Provider: Anastasiya Chaudhary MD :1965 A ge:59 Y S ex:Female Date:12/14/2024 Address:[address] [place], [place] [id number] Subjective: * Chief Complaints: * P re Op * HPI: G YN: Floridalma Conrad is a 59-year-old female who reports experiencing vaginal bleeding since September 15. Initially, she thought it was a minor scratch, but the bleeding persisted. She underwent treatment with silver nitrate, which temporarily stopped the bleeding for two to three days, but it resumed and lasted about a week the second time. The bleeding has worsened, and she now uses four to five panty liners a day, compared to a couple a day previously. She notes that the bleeding is more pronounced when she goes to the bathroom. Floridalma also mentions a family history of ovarian cancer, as her mother from the disease. She had a hysterectomy before her mother's diagnosis and has since undergone ovarian screening. Since her last visit, her bx has come back consistent with endometrial tissue. She has been scheduled for robotic bilateral oophorectomy with excision of vaginal apex mass. G eneral Health Maintenance: Patient presents for hysterectomy counseling. * Medical History: Abnormal pap Seasonal allergies Hypertension * Information Technology Director History: P ap Smear History: L ast Pap/HPV Results: N ormal Pap M ammogram History: D ate of last mammogram: 0 * OB History: G P : 2 Para: 2 * Surgical History: x 2 cryo surgery 1994 LAV - 2006 tubal D&C * Hospitalization/Major Diagno stic Procedure: childbirth [facility] * Family History: Father lung cancer , HTN-MGM, father and PGM , mother- ovarian cancer , PGM-diabetes. * Social History: T obacco Use: T obacco Use/Smoking A re you a f ormer smoker D rugs/Alcohol: D rugs H ave you used drugs other than those for medical reasons in the past 12 months? N o Alcohol Screen D id you have a drink containing alcohol in the past year? N o P oints 0 I nterpretation N egative * Medications: T akingApple Cider Vinegar Estradiol 1 MG Tablet 1 tablet Orally Once a day Losartan Potassium , Notes to Pharmacist: 1.25mg sr capTestosterone Turmeric Medication List reviewed and reconciled with the patientTaking Apple Cider Vinegar Taking Estradiol 1 MG Tablet 1 tablet Orally Once a day Taking Losartan Potassium , Notes to Pharmacist: 1.25mg sr capTaking Testosterone Taking Turmeric Medication List reviewed and reconciled with the patient * Allergies: P ENICILLIN V POTASSIUM (PENICILLIN V POTASSIUM TAB: rash - Allergy - Onset Date [id number][Allergies Verified] Objective: * Vitals: B P:126/86mm Hg, Ht: 61 in, Wt:139.8lbs, BMI:26.41Index. * P ast Orders: L ab:CBC WITH AUTO DIFFERENTIAL (Order Date - 12/14/2024) (Collection Date & Time - 12/14/2024 11:59 AM) Result: Normal Value Reference Range WBC, CORRECTED 4.11 3.40-10.80 - 10*3/mm 3 ERYTHROCYTES IN BLOOD BY AUTOMATED COUNT 4.22 3.77-5.28 - 10*6/mm3 HEMOGLOBIN (MG/DL) IN BLOOD 13.0 12.0-15.9 - g/dL HEMATOCRIT (%) BY AUTOMATED COUNT 39.9 34.0-46.6 - % RBC MCV (FL) BY AUTOMATED COUNT 94.5 79.0-97.0 - fL RBC MCH (PG) BY AUTOMATED COUNT 30.8 26.6-33.0 - pg RBC MCHC (G/DL) BY AUTOMATED COUNT 32.6 31.5-35.7 - g/dL RBC RDW (%) BY AUTOMATED COUNT 13.4 12.3-15.4 - % RDW-SD 46.3 37.0-54.0 - fl MEAN PLATELET VOLUME (FL) BY AUTOMATED COUNT 9.1 6.0-12.0 - fL PLATELETS BY AUTOMATED COUNT 225 140-450 - 10*3/mm3 NEUTROPHILS RELATIVE PERCENT BY AUTOMATED COUNT 41.7 L 42.7-76.0 - % LYMPHOCYTES RELATIVE PERCENT BY AUTOMATED COUNT 45.7 H 19.6-45.3 - % MONOCYTES RELATIVE PERCENT BY AUTOMATED COUNT 10.2 5.0-12.0 - % EOSINOPHILS RELATIVE PERCENT BY AUTOMATED COUNT 1.7 0.3-6.2 - % BASOPHILS RELATIVE PERCENT BY AUTOMATED COUNT 0.5 0.0-1.5 - % IMMATURE GRANULOCYTES RELATIVE PERCENT 0.2 0.0-0.5 - % NEUTROPHILS ABSOLUTE COUNT BY AUTOMATED COUNT 1.71 1.70-7.00 - 10*3/mm3 LYMPHOCYTES ABSOLUTE COUNT BY AUTOMATED COUNT 1.88 0.70-3.10 - 10*3/mm3 MONOCYTES ABSOLUTE COUNT BY AUTOMATED COUNT 0.42 0.10-0.90 - 10*3/mm3 EOSINOPHILS ABSOLUTE COUNT BY AUTOMATED COUNT 0.07 0.00-0.40 - 10*3/mm3 BASOPHILS ABSOLUTE COUNT BY AUTOMATED COUNT 0.02 0.00-0.20 - 10*3/mm3 IMMATURE GRANULOCYTES ABSOLUTE COUNT 0.01 0.00-0.05 - 10*3/mm3 NRBC (PER 100 WBCS) 0.0 0.0-0.2 - /100 WBC L ab:URINALYSIS W/ CULTURE IF INDICATED (Order Date - 12/14/2024) (Collection Date & Time - 12/14/2024 11:59 AM) Result: Negative Value Reference Range COLOR OF URINE Yellow Yellow, St - CLARITY OF URINE Clear Clear - PH OF URINE BY AUTOMATED TEST STRIP 6.5 5.0-8.0 - SPECIFIC GRAVITY OF URINE BY AUTOMATED TEST STRIP 1.009 1.001-1.03 - GLUCOSE IN URINE BY AUTOMATED TEST STRIP Negative Negative - KETONES IN URINE BY AUTOMATED TEST STRIP Negative Negative - BILIRUBIN, TOTAL IN URINE BY AUTOMATED TEST STRIP Negative Negative - HEMOGLOBIN IN URINE BY AUTOMATED TEST STRIP Moderate (2+) A Negative - PROTEIN IN URINE BY AUTOMATED TEST STRIP Negative Negative - LEUKOCYTE ESTERASE IN URINE BY AUTOMATED TEST STRIP Negative Negative - NITRITE IN URINE BY AUTOMATED TEST STRIP Negative Negative - UROBILINOGEN IN URINE BY AUTOMATED TEST STRIP 0.2 E.U./dL 0.2 - 1.0 - L ab:URINALYSIS, MICROSCOPIC ONLY (Order Date - 12/14/2024) (Collection Date & Time - 12/14/2024 11:59 AM) Result: Negative Value Reference Range RBC, UA 0-2 None Seen, - /HPF WBC, UA 0-2 None Seen, - /HPF BACTERIA, UA None Seen None Seen, - /HPF SQUAMOUS EPITHELIAL CELLS, UA 0-2 None Seen, - /HPF HYALINE CASTS, UA None Seen 0-6 - /LPF METHODOLOGY Automated Microscopy - L ab:POTASSIUM (Order Date - 12/14/2024) (Collection Date & Time - 12/14/2024 12:13 PM) Result: Normal Value Reference Range POTASSIUM MMOL/L IN SER/PLAS 4.7 3.5-5.2 - mmol/L L ab:Tissue Pathology (Order Date - 11/15/2024) (Collection Date & Time - 11/15/2024 02:16 PM) Value Reference Range AP results - Notes: Eliane Soliz 11/17/2024 05:49:34 PM EDT > Patient notified of benign path and will notify Dr. Chaudhary of results. I maging:*US Pelvis Complete Transabdominal/Vaginal (Non-OB) (Order Date - 11/16/2024) (Performed Date - 11/16/2024) * Examination: G eneral Examination: GENERAL: W ell developed/well nourished, no acute distress, oriented to time, place, and person. CARDIOPULMONARY: R espiratory effort even and unlabored.? PSYCHIATRIC: M ood pleasant. Assessment: * Assessment: 1. P elvic mass - R19.00 (Primary) 2 . V aginal bleeding - N93.9 3 . P re-op evaluation - Z01.818 Plan: * Treatment: * Procedure Codes: * Billing Information: * Visit Code: 48841 Office/Outpatient visit, est patient. * Procedure Codes: * Sign off status: Completed Visit Status: C HK (Check Out) true * Provider: Anastasiya Chaudhary MD Date: 0 12/14/2024 Generated for Alyse german/Jailyn/Sharmilaitting on: 0 02/03/2025 01:29 PM EDT
--- OUTSIDE RECORDS SUMMARY | 2024-12-23 05:00 | XMS_ITS ---
Author Organization [facility] Address [address] [facility] [address] [place] [address] Care Team Providers Care Pulpwood Contractor Name Role Phone Eliane Soliz Unavailable [phone] Fartun Chaudhary Unavailable [phone] REASON FOR VISIT AUGUSTINE EXC OF VAG CUFF MASS, ANDREY SO Social History Sex Assigned At : Social History Observation Description Sex Assigned At Female Encounters Encounter Location Date Provider Diagnosis [facility] [address] [place] [address] 12/23/2024 Fartun Chaudhary Plan Of Treatment Next Appt Details Provider Name:Eliane Soliz, 09/16/2025 11:15:00 AM, [address] [facility], [place], [address], Progress Notes * Floridalma CONRAD LDOB:1965 (59 yo F)Acc No.[id number]:12/23/2024 Patient: Floridalma Nguyễn Elijah Provider: Anastasiya Chaudhary MD :1965 A ge:59 Y S ex:Female Date:12/23/2024 Address:[place] [id number] Subjective: * Chief Complaints: * R OB EXC OF VAG CUFF MASS, ANDREY SO Billing Information: * Procedure Codes: * Electronic signature of Hazel Chaudhary MD on 02/03/2025 at 01:28 PM EDT Sign off status: Pending Visit Status: Shanta ARRIAGA (Check Out) * Provider: Anastasiya Chaudhary MD Date: 0 12/23/2024 Generated for Alyse german/Jailyn/Daniel on: 0 02/03/2025 01:28 PM EDT
--- OUTSIDE RECORDS SUMMARY | 2025-01-11 09:30 | XMS_ITS ---
Author Organization [facility] Address [address] [place] [address] Care Team Providers Care Top Knitter Name Role Phone Eliane Soliz Unavailable [phone] Fartun Chaudhary Unavailable [phone] Allergies Allergen (clinical drug ingredient) Drug/Non Drug Allergy documented on EMR Reaction Allergy Type Onset Date Status PENICILLIN V POTASSI UM (PENICILLIN V POTASSIUM TAB rash Drug Allergy 12/23/2013 Active REASON FOR VISIT 4 wk post op Medications Medication SIG (Take, Route, Frequency, Duration) Notes Start Date End Date Status Turmeric Active Apple Cider Vinegar Active Losartan Potassium 1.25mg sr cap Active Acetaminophen Extra Strength 500 MG Tablet 2 tablet po every 6 hours; Duration: 14 days Take on schedule for 14 days to prevent post operative pain, then as needed. Active Magnesium Active Social History Tobacco Use: Social History [...] former smoker Vital Signs Blood pressure systolic 120 mm Hg 01/12/20 25 Blood pressure diastolic 76 mm Hg 025 Height 61 in 01/11/2025 Weight 139.2 lbs 01/11/2025 BMI 26.3 kg/m2 01/11/2025 Encounters Encounter Location Date Provider Diagnosis [id number] [address] [address] [place] [address] 01/11/2025 Fartun Chaudhary Postoperative visit Z48.89 Assessments Encounter Date Diagnosis (ICD Code) Assessment Notes Treatment Notes Treatment Clinical Notes Section Notes 01/11/2025 Postoperative visit (ICD-10 - Z48.89) Normal post op. Precautions reviewed. Plan Of Treatment Next Appt Details Provider Name:Eliane Soliz, 09/16/2025 11:15:00 AM, [address] [facility], [address], [place], [address], History and Physical Notes * HPI (History of Present Illness) Category Sub-Category Detail Notes Category Not es Post Operative Visit Pathology Results Benign ovaries, endometriosis Date of Operation BSO, excision of vag inal wall mass, ureterolysis (Dr. De La Rosa) 12/23/24 Post Operative Complication Complications Reported Complications: : Patient is doing well. She denies significant pain or bleeding and reports normal voiding function. Examination Category Sub-Category Detail Notes Category Not es Genitourinary Examination - Female VAGINA: Normal appearance for age, n o significant discharge, lesions, or masses present CERVIX: Appearance normal, n o lesions present, no significant discharge, no tenderness to cervical motion UTERUS: Size normal, no palp able masses, mobile, nontender to palpation BLADDER: Normal and nontender to palpation ADNEXA: No masses or tendern ess bilaterally EXTERNAL GENITALIA: Normal appearance fo r age, no erythema or skin lesions present URETHRA/URETHRAL MEATUS: Normal in appea peter, nontender without mass effect PERINEUM: Normal in appearance without lesion General Examination GENERAL APPEARANCE: Well dev eloped, well nourished, alert in no acute distress NEURO/PSYCH: Oriented to person, place, and time. Mood pleasant, normal affect CARDIOPULMONARY: Respiratory effort i s even and unlabored ABDOMINAL/GASTROINTESTINAL: Abdomen nont nancy, no masses palpated Incision Check Incision(s) Clean dry intact , vaginal cuff intact without evidence of infection or hematoma Director Of Recreation Therapy Director Of Recreation Therapy Status BEULAH PATRICIO Progress Notes * Floridalma CONRAD LDOB:1965 (59 yo F)Acc No.[id number]:01/11/2025 Progress Note Patient: Floridalma SMYTH Provider: Anastasiya Chaudhary MD :1965 A ge:59 Y S ex:Female Date:01/11/2025 Address:[place], [id number] Subjective: * Chief Complaints: * 4 wk post op * HPI: P ost Operative Visit: Date of Operation B SO, excision of vaginal wall mass, ureterolysis (Dr. De La Rosa) 12/23/24. Pathology Results B enign ovaries, endometriosis. P ost Operative Complication: Complications R eported Complications : Patient is doing well. She denies significant pain or bleeding and reports normal voiding function. * Medical History: Abnormal pap Seasonal allergies Hypertension * Client Business Manager History: P ap Smear History: L ast Pap/HPV Results: N ormal Pap M ammogram History: D ate of last mammogram: * OB History: G P : 2 Para: 2 * Surgical History: x 2 cryo surgery 1994 [facility] - 2006 tubal D&C BSO, excision of vaginal wall mass, left uterolysis 12/23/24 * Hospitalization/Major Diagno stic Procedure: childbirth [facility] * Family History: Father lung cancer , [...] I nterpretation N egative * Medications: T akingAcetaminophen Extra Strength 500 MG Tablet 2 tablet po every 6 hours Take on schedule for 14 days to prevent post operative pain, then as needed.Apple Cider Vinegar Losartan Potassium , Notes to Pharmacist: 1.25mg sr capMagnesium Turmeric Taking Acetaminophen Extra Strength 500 MG Tablet 2 tablet po every 6 hours Take on schedule for 14 days to prevent post operative pain, then as needed.Taking Apple Cider Vinegar Taking Losartan Potassium , Notes to Pharmacist: 1.25mg sr capTaking Magnesium Taking Turmeric DiscontinuedEstradiol 1 MG Tablet 1 tablet Orally Once a day Meloxicam 15 MG Tablet 1 tablet po daily Take daily for 14 days to prevent post-operative pain.Ondansetron HCl 4 MG Tablet 1 tablet po every 8 hours As needed for post operative nauseaoxyCODONE HCl 5 MG Tablet 1 tablet po every 6 hours Take as needed for severe post operative pain.Polyethylene Glycol 3350 17 GM/SCOOP Powder 1 scoop po daily Use daily for 14 days to prevent post operative constipation. May hold for loose stool. May double dose for severe constipation.Testosterone Medication List reviewed and reconciled with the patientDiscontinued Estradiol 1 MG Tablet 1 tablet Orally Once a day Discontinued Meloxicam 15 MG Tablet 1 tablet po daily Take daily for 14 days to prevent post-operative pain.Discontinued Ondansetron HCl 4 MG Tablet 1 tablet po every 8 hours As needed for post operative nauseaDiscontinued oxyCODONE HCl 5 MG Tablet 1 tablet po every 6 hours Take as needed for severe post operative pain.Discontinued Polyethylene Glycol 3350 17 GM/SCOOP Powder 1 scoop po daily Use daily for 14 days to prevent post operative constipation. May hold for loose stool. May double dose for severe constipation.Discontinued Testosterone Medication List reviewed and reconciled with the patient * Allergies: P ENICILLIN V POTASSIUM (PENICILLIN V POTASSIUM TAB: rash - Allergy - Onset Date [id number][Allergies Verified] Objective: * Vitals: B P:120/76mm Hg, Ht: 61 in, Wt:139.2lbs, BMI:26.3Index. * Examination: G eneral Examination: GENERAL APPEARANCE: W ell developed, well nourished, alert in no acute distress. NEURO/PSYCH: O riented to person, place, and time. Mood pleasant, normal affect. CARDIOPULMONARY: R espiratory effort is even and unlabored.? ABDOMINAL/GASTROINTESTINAL: A bdomen nontender, no masses palpated. I ncision Check: Incision(s) C lean dry intact, vaginal cuff intact without evidence of infection or hematoma. G enitourinary Examination - Female: EXTERNAL GENITALIA: N ormal appearance for age, no erythema or skin lesions present. URETHRA/URETHRAL MEATUS: N ormal in appearance, nontender without mass effect. BLADDER: N ormal and nontender to palpation. VAGINA: N ormal appearance for age, no significant discharge, lesions, or masses present. CERVIX: A ppearance normal, no lesions present, no significant discharge, no tenderness to cervical motion. UTERUS: S ize normal, no palpable masses, mobile, nontender to palpation. ADNEXA: N o masses or tenderness bilaterally. PERINEUM: N ormal in appearance without lesion. ? C haperone: Director Of Recreation Therapy Status Zak PARRA LPN . Assessment: * Assessment: 1. P ostoperative visit - Z48.89 (Primary) Plan: * Treatment: * Procedure Codes: 9 9024 POSTOP FOLLOW-UP VISIT * Preventive Medicine: Post Operative: I nstructions D iscussed her post-op course to date, as well as the expected progress going forward, including returning to work, exercise and sexual activity. All questions answered. Patient voices an understanding of instructions and will resume routine gynecologic care. The patient will call or return to the office for questions or problems.. * Billing Information: * Visit Code: 61630 Office/Outpatient visit, est patient. * Procedure Codes: 11356 POSTOP FOLLOW-UP VISIT. * Sign off status: Completed Visit Status: C HK (Check Out) true * Provider: Anastasiya Chaudhary MD Date: 0 01/11/2025 Generated for Alyse german/Jailyn/Sharmilaitting on: 0 02/03/2025 01:29 PM EDT
[2025-02-03 13:13] LABS: 25-OH Vitamin D, Total 50.9 ng/mL (30-100)
[2025-02-03 13:27] LABS: Thyroid Stimulating Hormone 1.06 uIU/mL (0.465-4.68)
--- OUTSIDE RECORDS SUMMARY | 2025-02-03 13:30 | XMS_ITS | Clinical Summary ---
Author Organization Healthcare Address [address] [place] [address] Care Team Providers Care Metal Bonder Name Role Phone Lisandro Gale DO Primary Care Provider [phone] Social History Tobacco Use Types Packs/Day Years Used Date Smoking Tobacco: Never Assessed Comments Unknown Sex and Gender Information Value Date Recorded Sex Assigned at Not on file Legal Sex Female 6:38 PM EDT Gender Identity Not on file Sexual Orientation Not on file Plan of Treatment Upcoming Encounters Date Type Department Care Team (Late st Contact Info) Description 09/30/2025 10:30 AM EST Ovarian Cancer Screening [facility] Gynecology [address] [place] [address] Health Maintenance Due Date Last Done Comments [facility]-Depression Screening 1965 [facility]-HIV Screening 1965 [facility]-Hepatitis C Screening 1965 [facility]-Infant/Child/Adol SDOH Screenings 1965 [facility]- SDOH Screenings 02/06/1982 [facility]-Adult SDOH Screenings 02/06/1982 [facility]-DTaP,Tdap,and Td Vaccines (1 - Tdap) 02/06/1983 [facility]-Pap Smear 02/06/1985 [facility]-Cervical Cancer Screening 02/06/1994 [facility]-HPV/Cotest 02/06/1994 CT Colonography 02/06/2009 Colonoscopy 02/06/2009 FIT-DNA 02/06/2009 FIT 02/06/2009 FOBT 02/06/2009 Sigmoidoscopy 02/06/2009 [facility]-Colorectal Cancer Screening 02/06/2009 [facility]-Pneumococcal Vaccine: 50+ Years (1 of 1 - PCV) 02/06/2014 [facility]-Zoster Vaccines (2 of 3) 10/18/2017 08/23/2017 [id number] Vaccine (3 season) 2024 05/23/2021, 04/20/2021 [facility]-Breast Cancer Screening 05/14/2026 09, 05/14/2024, 05/13/2023, Additional history exists [facility]-RSV Vaccine: 60+ Years or (1 - 1-dose 75+ series) 02/06/2039 [facility]-Influenza Vaccine Completed 05/31/2024 , 07/03/2023, 05/29/2022, Additional history exists HPV Vaccines Aged Out No longer eligi ble based on patient's age to complete this topic [facility]-HIB Vaccines Aged Out No longer e ligible based on patient's age to complete this topic [facility]-Hepatitis A Vaccines Aged Out No longer eligible based on patient's age to complete this topic [facility]-IPV Vaccines Aged Out No longer e ligible based on patient's age to complete this topic [facility]-Rotavirus Vaccines Aged Out No lo nger eligible based on patient's age to complete this topic Insurance [facility] Care Teams Metal Bonder Relationship Specialty Start Date End Date Lisandro Gale DO [address] [place] [address] PCP - General 09/20/24
--- OUTSIDE RECORDS SUMMARY | 2025-02-03 13:30 | XMS_ITS | Patient Health Record ---
Author Organization [facility] Address [address] [facility] [address] [place] [address] Care Team Providers Care Mophead Sewer Name Role Phone Eliane Soliz Unavailable [phone] Fartun Chaudhary Unavailable [phone] Allergies Allergen (clinical drug ingredient) Drug/Non Drug Allergy documented on EMR Reaction Allergy Type Onset Date Status PENICILLIN V POTASSI UM (PENICILLIN V POTASSIUM TAB rash Drug Allergy 12/23/2013 Active Results Component Value Reference Range Flag Notes Tissue Pathology Reviewed date:11/17/2024 05:55:30 PM Interpretation: Performing Lab:Raz ESPINO [facility] - STEVEN CLIA ID [id number], [address] [facility] [facility], [address], [place] [address], Director - Neville Bhakta MD Notes/Report: PATH: Clinical History: : granulation tissue of vaginal cuff, vaginal bleeding PATH: Pre-op diagnosis: : granulation tissue of vaginal cuff, vaginal bleeding Office container count: 1 AP results VAGINA, BIOPSY --- Received is a single formalin filled container labeled Floridalma Conrda and additionally labeled vag cuff . The specimen consists of 2 mccloud irregularly shaped fragment measuring .9 x .6 x .2 cm and .9 x .2 x .2 cm. The larger specimen is bisected. The specimen is entirely submitted in a single cassette A1. (3) FINAL SURGICAL PATHOLOGY REPORT BENIGN POLYPOID ENDOMETRIAL TISSUES. Neville Bhakta MD ICD Codes: N89.8, N93.9 Pathologist --- --- --- CPT Codes: 91798 The diagnosis for each specimen is derived from microscopic examination of all preparations. Unless otherwise stated, each specimen is represented by serially sectioned, H&E-stained slides from one block. 11/16/2024 1:47 PM Gross Examination: Microscopic Description: NO HYPERPLASIA OR CARCINOMA. Diagnosis: MAMMO SCREENING DIGITAL IVONE SYNTHESIS BILATERAL W CAD Reviewed date:05/19/2024 05:15:19 PM Interpretation: Performing Lab: Notes/Report: ROUTINE DIGITAL SCREENING MAMMOGRAM WITH TOMOSYNTHESIS HISTORY: Routine screening. IMAGE COMPARISON: Extending to 2020. TECHNIQUE: Low dose full field digital breast tomosynthesis imaging was performed with 2D and 3D acquisitions consisting of bilateral CC and MLO views. FINDINGS: The breasts are heterogeneously dense. The fibroglandular pattern appears stable. There is no mass, worrisome microcalcifications, or architectural distortion to suggest development of malignancy. No findings suspicious for malignancy. ACR BI-RADS CATEGORY: 1, NEGATIVE RECOMMENDATION: Yearly mammogram, yearly clinical breast exam, and encourage self breast awareness. CAD was used. The standard false negative rate of mammography is between 10% and 25%. Complex patterns or increased breast density will markedly elevate the false negative rate of mammography. A letter, in lay terminology, with the results of this exam will be mailed to the patient. If there is a palpable area of concern, biopsy should be considered regardless of imaging findings. This report was finalized on 05/19/2024 4:38 PM by Soraya Noriega MD. Signed by: Soraya Noriega MD on 05/19/2024 4:38 PM No new problems per pt 10# wt loss mult images Reason for Exam:->ROUTINE SCREENING POTASSIUM Reviewed date:12/14/2024 12:49:54 PM Interpretation:Normal Performing Lab: Notes/Report: POTASSIUM MMOL/L IN SER/PLAS 4.7 3.5-5.2 mmol/L Lab specimens received at a [facility].?See result details for the performing location information. TISSUE PATHOLOGY EXAM Reviewed date:12/24/2024 12:12:49 PM Interpretation:Benign findings Performing Lab: Notes/Report: LAB AP CASE REPORT Surgical Pathology Report Case: [id number] LAB AP CASE REPORT Authorizing Provider : Fartun Chaudhary MD Collected: 12/23/2024 11:25 AM LAB AP CASE REPORT [facility]ing Location: [facility] Received: 12/23/2024 11:44 AM LAB AP CASE REPORT OR LAB AP CASE REPORT Pathologist: Aristeo Gonzalez MD LAB AP CASE REPORT Intraop: Chao Jefferson MD LAB AP CASE REPORT Specimens: 1) - Ovar y, Left with Fallopian Tube, LEFT TUBE, OVARY, PORTION OF VAGINA LAB AP CASE REPORT 2) - Ovary, Right wi th Fallopian Tube LAB AP CASE REPORT 3) - Uterus, LEFT PARAMETRIUM LAB AP CLINICAL INFORMATION Pelvic mass LAB AP FINAL DIAGNOSIS Left ovary and fallopian tube with portion of vagina, resection: LAB AP FINAL DIAGNOSIS Dense scar tissue with extensive endometriosis LAB AP FINAL DIAGNOSIS Atrophic ovary an d unremarkable fallopian tube LAB AP FINAL DIAGNOSIS Negative for dysp lasia or malignancy LAB AP FINAL DIAGNOSIS 2. Right ovary an d fallopian tube, excision LAB AP FINAL DIAGNOSIS Atrophic ovary wi th dense tubo-ovarian adhesions LAB AP FINAL DIAGNOSIS Unremarkable fall opian tube LAB AP FINAL DIAGNOSIS Paratubal cyst LAB AP FINAL DIAGNOSIS Negative for dysp lasia or malignancy LAB AP FINAL DIAGNOSIS 3. Left parametri um, biopsy: LAB AP FINAL DIAGNOSIS Fibrous scar tiss ue with endometriosis LAB AP FINAL DIAGNOSIS Negative for malignancy LAB AP FINAL DIAGNOSIS Electronically si gned by Aristeo Gonzalez MD on 12/24/2024 at 1153 EDT LAB AP INTRAOPERATIVE CONSULTATION Frozen section: Verbal report given to Dr. Chaudhary/Rj via speakerphone on 12/23/2024 at 11:46 EDT. LAB INTRAOPERATIVE CONSULTATION FROZEN SECTION DIAGNOSIS: [place] appearing glandular tissue, favor endometrial; no overt atypical features on eligibility services representative frozen section (PCC, 1 cassette) LAB INTRAOPERATIVE CONSULTATION Stains used for Immediate Evaluation are acceptable. LAB INTRAOPERATIVE CONSULTATION Intraoperative consult electronically signed by Chao Jefferson MD on 12/23/2024 at 1150 EDT [facility] GROSS DESCRIPTION 1. Ovary, Left with Fallopian Tube. [facility] GROSS DESCRIPTION Received fresh for frozen section labeled left tube, ovary, portion of vagina is a 7.5 x 5.5 x 2.2 cm unoriented, irregularly-shaped portion of roughened tissue partially covered in pink, glistening mucosa. Also received freely floating in the container is a detached 3.0 cm long by 0.5 cm in diameter fimbriated fallopian tube. The margin is inked blue and sectioning reveals solid, mccloud cut surfaces with a scattered glandular pattern. A 1.8 x 1.2 x 1.1 cm possible ovary is identified at 1 end of the specimen. No mass or nodule is grossly identified. Sectioning of the fallopian tube reveals a grossly unremarkable lumen. Cosmetic Sales Advisor sections are submitted as follows: [facility] GROSS DESCRIPTION 1A-frozen remnant [facility] GROSS DESCRIPTION [id number]-tgkczo, roughened tissue, and possible ovary [facility] GROSS DESCRIPTION 1G-fallopian tube with entire fimbriated end. [facility] GROSS DESCRIPTION 2. Ovary, Right with Fallopian Tube. [facility] GROSS DESCRIPTION Received in formalin labeled ovary, right with fallopian tube is a 3.5 cm long by 0.9 cm in diameter fimbriated fallopian tube with attached soft tissue. A white plastic ring is present at the proximal aspect. Also received in the container is a 1.7 x 1.0 x 0.7 cm roughened fragment of pink tissue. Sectioning through the attached soft tissue reveals a 1.4 x 1.0 x 0.4 cm mccloud ovary with grossly unremarkable cut surfaces. Cosmetic Sales Advisor sections are submitted as follows: [facility] GROSS DESCRIPTION 2A-fallopian tube with entire fimbriated end [facility] GROSS DESCRIPTION 2B-ovary [facility] AP GROSS DESCRIPTION 7Z-bvnn-jdrxnlxx fragment, submitted entirely. [facility] LAB AP GROSS DESCRIPTION 3. Uterus. [facility] LAB AP GROSS DESCRIPTION Received in formalin labeled left parametrium is a 2.5 x 2.5 x 1.1 cm aggregate of fragmented yellow soft tissue, sectioned and submitted entirely in blocks 3A-3B. [facility] LAB AP MICROSCOPIC DESCRIPTION The slides are reviewed and demonstrate histopathologic features supporting the above rendered diagnosis. Lab specimens received at a [facility].?See result details for the performing location information. ECG 12-LEAD Reviewed date:12/16/2024 10:43:52 AM Interpretation: Performing Lab: Notes/Report: Test Reason : Pre-Op / Pre-Procedure Blood Pressure : */* mmHG Vent. Rate : 64 BPM Atrial Rate : 64 BPM P-R Int : 156 ms QRS Dur : 110 ms QT Int : 418 ms P-R-T Axes : 58 47 50 degrees QTcB Int : 431 ms Normal sinus rhythm Normal ECG No previous ECGs available Confirmed by MD Jacome Robert ([id number]) on 12/14/2024 2:09:48 PM Referred By: Confirmed By: Colton Jacome MD Table formatting from the original result was not included. Images from the original result were not included. Results ECG 12 Lead (Order [id number]) Order Questions Question Answer Reason for Exam Pre-Op / Pre-Procedure Release to patient Routine Release ECG 12 Lead Order: [id number] Status: Final result Next appt: None Test Result Released: No (scheduled for 12/14/2024 3:12 PM) 0 Result Notes Component Ref Range & Units 12/14/24 10:23 AM QT Interval {\par} ms 418 QTC Interval {\par} ms 431 Narrative & Impression Test Reason : Pre-Op / Pre-Procedure Blood Pressure : */* mmHG Vent. Rate : 64 BPM Atrial Rate : 64 BPM P-R Int : 156 ms QRS Dur : 110 ms QT Int : 418 ms P-R-T Axes : 58 47 50 degrees QTcB Int : 431 ms Normal sinus rhythm Normal ECG No previous ECGs available Confirmed by MD Jacome Robert ([id number]) on 12/14/2024 2:09:48 PM Referred By: Confirmed By: Colton Jacome MD Specimen Collected: 12/14/24 10:23 AM EDT Last Resulted: 12/14/24 2:09 PM EDT Result Care Coordination Patient Communication 12/14/2024 3:12 PM Not seen Back to Top Signed at 1409 EDT Order History Outpatient Date/Time Action Taken User Additional Information 12/14/24 1020 Release Silvia Ziegler RN From Order: [id number] 12/14/24 1024 Result Interface, Ekg Results In Preliminary 12/14/24 1039 Edit Result Interface, Ekg Results In Preliminary 12/14/24 1412 Edit Result Interface, Ekg Results In Final ECG for patients with no ECG performed within the last 6 months and One of the following risk facors: CAD, Arrhythmia, Valvular Heart Disease, PVD, CVD, CHF, or the inability to achieve 4 METS, OR two of the following risk factors: COPD, NOÉ, IDDM, CKD, BMI >35, OR a patient having one of the following surgeries: Cardiac, major vascular, open intraperitoneal, all intrathoracic procedures, intracranial and multilevel spine surgery URINALYSIS, MICROSCOPIC ONLY Reviewed date:12/14/2024 12:49:44 PM Interpretation:Negative Performing Lab: Notes/Report: RBC, UA 0-2 None Seen, /HPF WBC, UA 0-2 None Seen, /HPF BACTERIA, UA None Seen None Seen, /HPF SQUAMOUS EPITHELIAL CELLS, UA 0-2 None Seen, /HPF HYALINE CASTS, UA None Seen 0-6 /LPF METHODOLOGY Automated Microscopy Lab specimens received at a [facility].?See result details for the performing location information. URINALYSIS W/ CULTURE IF IND ICATED Reviewed date:12/14/2024 12:49:27 PM Interpretation:Negative Performing Lab: Notes/Report: In absence of clinical symptoms, the presence of pyuria, bacteria, and/or nitrites on the urinalysis result does not correlate with infection. COLOR OF URINE Yellow Yellow, St CLARITY OF URINE Clear Clear PH OF URINE BY AUTOMATED TEST STRIP 6.5 5.0-8.0 SPECIFIC GRAVITY OF URINE BY AUTOMATED TEST STRIP 1.009 1.001-1.03 GLUCOSE IN URINE BY AUTOMATED TEST STRIP Negative Negative KETONES IN URINE BY AUTOMATED TEST STRIP Negative Negative BILIRUBIN, TOTAL IN URINE BY AUTOMATED TEST STRIP Negative Negative HEMOGLOBIN IN URINE BY AUTOMATED TEST STRIP Moderate (2+) Negative A PROTEIN IN URINE BY AUTOMATED TEST STRIP Negative Negative LEUKOCYTE ESTERASE IN URINE BY AUTOMATED TEST STRIP Negative Negative NITRITE IN URINE BY AUTOMATED TEST STRIP Negative Negative UROBILINOGEN IN URINE BY AUTOMATED TEST STRIP 0.2 E.U./dL 0.2 - 1.0 Lab spec imens received at a [facility].?See result details for the performing location information. CBC WITH AUTO DIFFERENTIAL Reviewed date:12/14/2024 12:49:16 PM Interpretation:Normal Performing Lab: Notes/Report: WBC, CORRECTED 4.11 3.40-10.80 10*3/mm3 ERYTHROCYTES IN BLOOD BY AUTOMATED COUNT 4.22 3.77-5.28 10*6/mm3 HEMOGLOBIN (G/DL) IN BLOOD 13.0 12.0-15.9 g/dL HEMATOCRIT (%) BY AUTOMATED COUNT 39.9 34.0-46.6 % RBC MCV (FL) BY AUTOMATED COUNT 94.5 79.0-97.0 fL RBC MCH (PG) BY AUTOMATED COUNT 30.8 26.6-33.0 pg RBC MCHC (G/DL) BY AUTOMATED COUNT 32.6 31.5-35.7 g/dL RBC RDW (%) BY AUTOMATED COUNT 13.4 12.3-15.4 % RDW-SD 46.3 37.0-54.0 fl MEAN PLATELET VOLUME (FL) BY AUTOMATED COUNT 9.1 6.0-12.0 fL PLATELETS BY AUTOMATED COUNT 225 140-450 10*3/mm3 NEUTROPHILS RELATIVE PERCENT BY AUTOMATED COUNT 41.7 42.7-76.0 % L LYMPHOCYTES RELATIVE PERCENT BY AUTOMATED COUNT 45.7 19.6-45.3 % H MONOCYTES RELATIVE PERCENT BY AUTOMATED COUNT 10.2 5.0-12.0 % EOSINOPHILS RELATIVE PERCENT BY AUTOMATED COUNT 1.7 0.3-6.2 % BASOPHILS RELATIVE PERCENT BY AUTOMATED COUNT 0.5 0.0-1.5 % IMMATURE GRANULOCYTES RELATIVE PERCENT 0.2 0.0-0.5 % NEUTROPHILS ABSOLUTE COUNT BY AUTOMATED COUNT 1.71 1.70-7.00 10*3/mm3 LYMPHOCYTES ABSOLUTE COUNT BY AUTOMATED COUNT 1.88 0.70-3.10 10*3/mm3 MONOCYTES ABSOLUTE COUNT BY AUTOMATED COUNT 0.42 0.10-0.90 10*3/mm3 EOSINOPHILS ABSOLUTE COUNT BY AUTOMATED COUNT 0.07 0.00-0.40 10*3/mm3 BASOPHILS ABSOLUTE COUNT BY AUTOMATED COUNT 0.02 0.00-0.20 10*3/mm3 IMMATURE GRANULOCYTES ABSOLUTE COUNT 0.01 0.00-0.05 10*3/mm3 NRBC (PER 100 WBCS) 0.0 0.0-0.2 /100 WBC Lab specimens received at a [facility].?See result details for the performing location information. *US Pelvis Complete Transabd ominal/Vaginal (Non-OB) Reviewed date:11/19/2024 11:22:01 AM Interpretation: Performing Lab: Notes/Report: [facility] Transvaginal Pelvic Study Report Name: FLORIDALMA CONRAD Accession/Encounter No:[id number] : 1965 Age: 59 Gender: F Race: White Study Date: Nov 16, 2024 Study Time: 04:58 PM Reading Group: Fartun Chaudhary MD Referring Group: Fartun Chaudhary MD Ordering Phys: Fartun Chaudhary MD Small Parts Assembler: Jamilah Gerardo RDMS Equipment: Affiniti 30 Study Quality: Good Indications: Vagnial bleeding Mass on vaginal cuff during exam Family history of ovarian cancer A limited pelvic transvaginal ultrasound was performed. Sag AP Trans Volume cm cm cm ml Right ovary: 1.2 0.75 0.83 0.39 Left ovary: 1.47 0.88 1.45 0.98 Findings: A transvaginal exam was performed. The uterus is surgically absent. Unremarkable right ovary measures 1.2 x 0.75 x 0.83 cm, volume 0.39 ml . Unremarkable left ovary measures 1.47 x 0.88 x 1.45 cm, volume 0.98 ml . Conclusions: Uterus is surgically absent. Ovaries are WNL on today's exam. There is a well circumscribed complex heterogenous area noted within the vaginal cuff measuring 2.0 x 0.9 x 1.9 cm. Approved By: Fartun Chaudhary MD Approved at: November 18, 2024 08:37 PM EDT Electronically Signed on Studycast FLORIDALMA CONRAD 2024-11-16 Page 1 of 1 Imaging Center - , [facility] Reason For Referral No Information Medications Medication SIG (Take, Route, Frequency, Duration) Notes Start Date End Date Status Apple Cider Vinegar Active Losartan Potassium 1.25mg sr cap Active Magnesium Active Acetaminophen Extra Strength 500 MG Tablet 2 tablet po every 6 hours; Duration: 14 days Take on schedule for 14 days to prevent post operative pain, then as needed. Active Turmeric Active Social History Tobacco Use: Social History [...] Tobacco Use/Smoking Are you a former smoker Problems Problem Type SNOMED Code ICD Code Onset Dates Problem Status W/U Status Risk Notes Problem Atrophy of vagina (100268792) Vaginal atrophy (N95.2) Active confirmed Problem Pelvic mass (86403505) Pelvic mass (R19.00) Active confirmed Problem Vaginal bleeding (422262794) Vaginal bleeding (N93.9) Active confirmed Vital Signs Heart Rate 88 /min 11/15/2024 Oximetry 98 % 11/15/2024 Blood pressure diastolic 76 mm Hg 01/11/2025 Height 61 in 01/11/2025 Blood pressure systolic 120 mm Hg 01/11/2025 Weight 139.2 lbs 01/11/2025 BMI 26.3 kg/m2 01/11/2025 Encounters Encounter Location Date Provider Diagnosis [facility] [address] [place] [address] 09/27/2024 Eliane Martínez [facility] [address] [place] [address] 10/20/2024 Eliane Martínez [facility] [address] [place] [address] 11/03[facility] [address] [place] [address] 11/10/2024 [facility] [address] [place] [address] 11/19/2024 Fartun Chaudhary [facility] [address] [facility] [address] [place] [address] 11/19/2024 Fartun Chaudhary [facility] [address] [place] [address] 11/22/2024 Eliane Soliz [facility] [address] [place] [address] 12/27/2024 Fartun Chaudhary [facility] [address] [facility] [address] [place] [address] 11/16/2024 Fartun Fuson Vaginal bleeding N93.9 and Pelvic mass R19.00 [facility] [address] [facility] [address] [place] [address] 10/11/2024 Eliane Martínez Vaginal bleeding N93.9 and Vaginal atrophy N95.2 [facility] [address] [facility] [address] [place] [address] 11/15/2024 Eliane Martínez Vaginal bleeding N93.9 and Granulation tissue of vaginal cuff N89.8 [facility] [address] [facility] [address] [place] [address] 12/14/2024 Fartun Jet Pelvic mass R19.00 ; Vaginal bleeding N93.9 and Pre-op evaluation Z01.818 [facility] [address] [facility] [address] [place] [address] 09/15/2024 Eliane Martínez Frame Trimmer exam without abnormal findings Z01.419 ; Encounter for screening for malignant neoplasm of breast Z12.31 ; Family history of malignant neoplasm of ovary in first degree relative Z80.41 ; Vaginal dryness N89.8 and Decreased libido without sexual dysfunction R68.82 [facility] [address] [facility] [address] [place] [address] 01/11/2025 Fartun Chaudhary Postoperative visit Z48.89 [facility] [address] [facility] [address] [place] [address] 10/29/2024 Eliane Martínez Vaginal bleeding N93.9 and Vaginal granulation tissue N89.8 [facility] [address] [facility] [address] [place] [address] 11/16/2024 Fartun Chaudhary Vaginal bleeding N93.9 [facility] [address] [place] [address] 12/23/2024 Fartun Chaudhary Assessments Encounter Date Diagnosis (ICD Code) Assessment Notes Treatment Notes Treatment Clinical Notes Section Notes 09/15/2024 Frame Trimmer exam without abnormal findings (ICD-10 - Z01.419) 09/15/2024 Encounter for screening for malignant neoplasm of breast (ICD-10 - Z12.31) 10/11/2024 Vaginal atrophy (ICD-10 - N95.2) 10/11/2024 Vaginal bleeding (ICD-10 - N93.9) Silver nitrate applied to area of cuff bleeding. Start vaginal 10 mcg tabs at bedtime 10-12-2024 and continue twice weekly. 10/29/2024 Vaginal granulation tissue (ICD-10 - N89.8) 10/29/2024 Vaginal bleeding (ICD-10 - N93.9) Silver nitrate applied to area of cuff bleeding. Start vaginal 10 mcg tabs at bedtime 10-12-2024 and continue twice weekly. Call back in 3 days to report symptom relief. 11/15/2024 Granulation tissue of vaginal cuff (ICD-10 - N89.8) Biopsy obtained of lesion today and sent for pathology. Refer to Dr. Chaudhary for excision under anesthesia. 11/15/2024 Vaginal bleeding (ICD-10 - N93.9) 11/16/2024 Pelvic mass (ICD-10 - R19.00) Plan robotic BSO, excision of pelvic mass and revision of vaginal cuff. 11/16/2024 Vaginal bleeding (ICD-10 - N93.9) 11/16/2024 Vaginal bleeding (ICD-10 - N93.9) 12/14/2024 Pelvic mass (ICD-10 - R19.00) 01/11/2025 Postoperative visit (ICD-10 - Z48.89) Normal post op. Precautions reviewed. 09/15/2024 Family history of malignant neoplasm of ovary in first degree relative (ICD-10 - Z80.41) Patient is scheduled for annual [facility] screening. 12/14/2024 Vaginal bleeding (ICD-10 - N93.9) 12/14/2024 [...] post operative medications, wound care and activity. 09/15/2024 Vaginal dryness (ICD-10 - N89.8) 09/15/2024 Decreased libido without sexual dysfunction (ICD-10 - R68.82) Add Testosterone 1.25mg SR capsule PO daily with refills x 6 months called to [facility] 11/16/2024 Other Total time spen t caring for the patient today _30_ minutes. This includes time spent before the visit reviewing the chart, time spent during the visit, time spent after the visit on documentation, and does not include procedure or preventative care time. Plan Of Treatment Next Appt Details Provider Name:Eliane Soliz, 09/16/2025 11:15:00 AM, [address] [place] [address], [phone], Insurance Providers Payer Name Payer Address Payer Phone Subscriber Number Group Number Insured Name Patient Relationship to Insured Coverage Start Date Coverage End Date [facility] [address] [address] [place], [place] [phone] [id number] Floridalma Conrad Self - patient is the insured Medical (General) History Medical History History ICD Code abnormal pap seasonal allergies hypertension Surgical History Surgery Date(Month/Year) x 2 cryo surgery 1994 [facility] - 2006 tubal D&C BSO, excision of vaginal wall mass, 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
[2025-02-04 07:53] LABS: Sex Hormone Binding Globulin 81.2 nmol/L (17.3-125.0)
[2025-02-04 08:32] LABS: DHEA-Sulfate 79.5 ug/dL (29.4-220.5); Estradiol <5.0 pg/mL (0.0-54.7); LH 72.1 mIU/mL (7.7-58.5); Progesterone 0.1 ng/mL (.); Thyroid Peroxidase Antibodies <9 IU/mL (0-34); Triiodothyronine (T3) Free 2.7 pg/mL (2.0-4.4)
[2025-02-08 00:08] LABS: Testosterone,Free 0.7 pg/mL (0.0-4.2)
[2025-02-11 20:44] LABS: Testosterone, Total, LC/MS 23 ng/dL (.)
== END 2025-02-03 23:59 | disposition home or self-care (01) ==
LOC: LAB 11:59
PROVIDERS: PCP Nurse Practitioner Family; Visit Provider Obstetrics & Gynecology
DX: N95.1 Menopausal and female climacteric states (principal); E03.8 Other specified hypothyroidism; E55.9 Vitamin D deficiency, unspecified
CPT/HCPCS: 36415; 82306; 82626; 82670; 83001; 83002; 84144; 84270; 84402; 84403; 84439; 84443; 84481; 86376